=== PATIENT | male | born 1985 | race American Indian/Alaskan Native ===

== ENCOUNTER 2019-07-26 09:50 | Emergency (ER) | payer SELFPAY ==
--- NOTE | 2019-07-26 10:27 | Emergency Department Report ---
ED Abdominal Pain HPI - General Chief Complaint: Abdominal Pain Stated Complaint: CHEST PAIN/STOMACH PAIN Time Seen by Provider: 07/26/19 10:21 Source: patient Mode of arrival: Ambulatory Limitations: No Limitations - History of Present Illness Initial Comments: Patient is 34 years old male with no significant past medical history. Patient presented to the ER complaining of abdominal pain, diffuse, sharp with no radiation. Patient stated that he has been vomiting since last night. Patient denied any diarrhea. Patient also denied any fever or chills. No penile discharge or dysuria. MD Complaint: abdominal pain -: Last night Location: diffuse Radiation: none Migration to: no migration Severity: moderate Severity scale (0 -10): 6 Quality: sharp Consistency: constant - Related Data Allergies Allergy/AdvReac Type Severity Reaction Status Date / Time No Known Allergies Allergy Unverified 07/26/19 09:53 ED Review of Systems ROS: Stated complaint: CHEST PAIN/STOMACH PAIN Other details as noted in HPI Comment: All other systems reviewed and negative Constitutional: denies: chills, fever Respiratory: denies: cough, shortness of breath, SOB with exertion, wheezing Cardiovascular: denies: chest pain, palpitations Gastrointestinal: abdominal pain, nausea, vomiting. denies: diarrhea, constipation, hematemesis, melena, hematochezia Musculoskeletal: denies: back pain Neurological: denies: headache, weakness, numbness, paresthesias, confusion, abnormal gait ED Past Medical Hx - Past Medical History Previous Medical History?: No - Surgical History Past Surgical History?: No - Social History Smoking Status: Current Every Day Smoker Substance Use Type: Alcohol ED Physical Exam - General Limitations: No Limitations General appearance: alert, in no apparent distress - Head Head exam: Present: atraumatic, normocephalic, normal inspection - Eye Eye exam: Present: normal appearance - ENT ENT exam: Present: mucous membranes dry - Neck Neck exam: Present: normal inspection, full ROM. Absent: tenderness, meningismus, lymphadenopathy, thyromegaly - Respiratory Respiratory exam: Present: normal lung sounds bilaterally - Cardiovascular Cardiovascular Exam: Present: regular rate, normal rhythm, normal heart sounds - GI/Abdominal GI/Abdominal exam: Present: soft, normal bowel sounds. Absent: distended, tenderness, guarding, rebound, rigid, organomegaly, mass, bruit, pulsatile mass, hernia - Extremities Exam Extremities exam: Present: normal inspection, full ROM, normal capillary refill. Absent: tenderness, pedal edema, calf tenderness - Back Exam Back exam: Present: normal inspection, full ROM. Absent: CVA tenderness (R), CVA tenderness (L), muscle spasm, paraspinal tenderness, vertebral tenderness - Neurological Exam Neurological exam: Present: alert, oriented X3, CN II-XII intact, normal gait, reflexes normal - Psychiatric Psychiatric exam: Present: normal mood - Skin Skin exam: Present: warm, intact, normal color ED Course Vital Signs 07/26/19 07/26/19 09:54 11:25 Temperature 98.0 F Pulse Rate 67 64 Respiratory 18 15 Rate Blood Pressure 126/57 Blood Pressure 147/81 [Right] O2 Sat by Pulse 100 98 Oximetry ED Medical Decision Making - Lab Data Result diagrams: 07/26/19 10:13 07/26/19 10:13 - Radiology Data Radiology results: report reviewed - Medical Decision Making Patient is 34 years old male with no significant past medical history. Patient presented to the ER complaining of abdominal pain, diffuse, sharp with no radiation. Patient stated that he has been vomiting since last night. Patient denied any diarrhea. Patient also denied any fever or chills. No penile discharge or dysuria. Initial labs reviewed that is unremarkable. CT abdomen and pelvis showed a 8mm obstructing kidney stone. Patient received morphine and Toradol for pain. She stated the symptoms is much better. Patient given Dr. Garcia, urologist to follow up with. Patient also advised to return to the ER if symptoms are not improved. Critical care attestation.: If time is entered above; I have spent that time in minutes in the direct care of this critically ill patient, excluding procedure time. ED Disposition Clinical Impression: Right ureteral calculus, Abdominal pain, Vomiting, UTI (urinary tract infection) Disposition: DC-01 TO HOME OR SELFCARE Is pt being admited?: No Condition: Stable Instructions: Kidney Stones (ED), Renal Colic (ED), Urinary Tract Infection in Men (ED) Referrals: ANA GARCIA MD [Staff Physician] - 3-5 Days
[2019-07-26] MEDS ORDERED: MORPHINE 4 MG/1 ML INJ IV ONE (10:28)
[2019-07-26] MEDS ORDERED: ONDANSETRON 4 MG/2 ML INJ IV ONE (10:28)
[2019-07-26] MEDS ORDERED: SODIUM CHLORIDE 0.9% 1000 ML 1,000 ML IV ONE (10:28)
[2019-07-26 10:43] LABS: Alanine Aminotransferase 91 units/L (7-56); Albumin 4.9 g/dL (3.9-5); BUN/Creatinine Ratio 11; Blood Urea Nitrogen 11 mg/dL (9-20); Hemolysis Index 66
[2019-07-26 10:47] LABS: Basophils % (Auto) 0.3 % (0.0-1.8); Eosinophils % (Auto) 0.1 % (0.0-4.3); Hematocrit 55.1 % (35.5-45.6); Hemoglobin 18.9 gm/dl (11.8-15.2); Lymphocytes # (Auto) 1.3 K/mm3 (1.2-5.4); Lymphocytes % (Auto) 10.2 % (13.4-35.0); Mean Corpuscular HGB Conc 34 % (32-34); Mean Corpuscular Volume 92 fl (84-94); Monocytes # (Auto) 0.8 K/mm3 (0.0-0.8); Red Blood Count 5.96 M/mm3 (3.65-5.03); Red Cell Distribution Width 14.5 % (13.2-15.2)
[2019-07-26 11:22] LABS: Platelet Count 155 K/mm3 (140-440)
[2019-07-26] MEDS ORDERED: PANTOPRAZOLE 40 MG INJ IV ONE (11:22)
[2019-07-26 11:52] VITALS: BP 147/81
--- NOTE | 2019-07-26 12:02 | Cat Scan Report ---
CT abdomen pelvis w con INDICATION: abdominal pain. TECHNIQUE: All CT scans at this location are performed using the following dose modulation technique: Automated exposure control. Helical slices were obtained through the abdomen and pelvis. 100 cc of Omnipaque 30 0 is administered. COMPARISON: None available. FINDINGS: Abdomen: The lung bases are clear. There multiple benign-appearing calcifications in the liver. The s pleen, pancreas, adrenal glands, and left kidney are unremarkable. There is an 8 mm stone at the right ureterovesical pelvic junction. There is moderate hydronephrosis on the right. Delayed excretion of contrast from the right kidney. There is a tiny calyceal stone in the lower pole. Pelvis: There is no obstruction or inflammation. There are no abnormal fluid collections. The appendi x is unremarkable. On review of bone windows, no acute osseous abnormalities are seen. IMPRESSION: 1. There is an 8 mm obstructing stone at the right ureteropelvic junction. There is moderate right hy dronephrosis. Signer Name: Fran Mtz MD Signed: 07/26/2019 11:57 AM Workstation Name: [id number]
[2019-07-26] MEDS ORDERED: KETOROLAC 30 MG/1 ML INJ IV ONE (12:16)
[2019-07-26 13:19] LABS: Bilirubin,Urine NEG (Negative); Blood,Urine LG (Negative); Color,Urine Yellow (Yellow); Mucus,Urine 1+ /HPF; Urobilinogen,Urine < 2.0 mg/dL (<2.0)
== END 2019-07-26 14:16 | disposition home or self-care (01) ==
LOC: ED 09:50
DX: N20.1 Calculus of ureter (principal); N39.0 Urinary tract infection, site not specified; F17.200 Nicotine dependence, unspecified, uncomplicated
CPT/HCPCS: 36415; 74177; 80053; 81001; 83690; 85025; 87086; 96361; 96374; 96375; 99284; C9113; J1885; J2270; J2405; J7030; Q9967